=== PATIENT | male | born 1965 | race Asian ===

== ENCOUNTER 2017-11-06 01:10 | Emergency (ER) | payer SELFPAY ==
[2017-11-06 01:41] VITALS: BP 163/94; PULSE 78; TEMP 98.6; BMI 34.4
--- NOTE | 2017-11-06 02:26 | PDOC ---
History of Present Illness - General History Source: Patient <Kiet Samaniego - Last Filed: 11/06/17 02:29> - History of Present Illness Initial Comments: 11/06/17 02:33 Patient is a 52 M with PMHX of HTN, who presents with earache for 3 days. Patient complains of bilateral ear pain, left greater than right. Denies fever, sick contacts. PCP: Anand Araiza <Shira Chand - Last Filed: 11/06/17 02:34> - General Chief Complaint: Ear Problem Stated Complaint: EARACHE Time Seen by Provider: 11/06/17 02:26 Past History - Past Medical History COPD: No Diabetes: Yes (type II) HTN: Yes - Immunization History Immunization Up to Date: Yes - Suicide/Smoking/Psychosocial Hx Smoking History: Never smoked Have you smoked in the past 12 months: No Number of Cigarettes Smoked Daily: 0 Cigars Per Day: 0 Information on smoking cessation initiated: No Hx Alcohol Use: No Drug/Substance Use Hx: No Substance Use Type: None <Kiet Samaniego - Last Filed: 11/06/17 02:29> <Shira Chand - Last Filed: 11/06/17 02:34> - Past Medical History Allergies/Adverse Reactions: Allergies Allergy/AdvReac Type Severity Reaction Status Date / Time No Known Allergies Allergy Verified 11/06/17 01:28 Home Medications: Ambulatory Orders Amox-Tr/K Cl [Augmentin 875Mg Tablet] 1 tab PO BID #20 tablet 11/06/17 Glyburide-Metformin 2.5-500 mg 2.5 - 500 mg PO DAILY 11/06/17 Losartan-Hctz 100-25 mg Tab 25 mg PO DAILY 11/06/17 Review of Systems - Review of Systems Comments:: 11/06/17 02:33 CONSTITUTIONAL: Absent: fever, no chills, no fatigue EYES: Absent: visual changes ENT: Present: bilateral ear pain Absent: no sore throat CARDIOVASCULAR: Absent: chest pain, no palpitations RESPIRATORY: Absent: cough, no SOB GI: Absent: abdominal pain, no nausea, no vomiting, no constipation, no diarrhea GENITOURINARY: Absent: dysuria, no frequency, no hematuria MUSCULOSKELETAL: Absent: back pain, no arthralgia, no myalgia SKIN: Absent: rash <Shira Chand - Last Filed: 11/06/17 02:34> *Physical Exam - Vital Signs Last Vital Signs Temp Pulse Resp BP Pulse Ox 98.6 F 78 20 163/94 100 11/06/17 01:28 11/06/17 01:28 11/06/17 01:28 11/06/17 01:28 11/06/17 01:28 <Kiet Samaniego - Last Filed: 11/06/17 02:29> - Vital Signs Last Vital Signs Temp Pulse Resp BP Pulse Ox 98.6 F 78 20 163/94 100 11/06/17 01:28 11/06/17 01:28 11/06/17 01:28 11/06/17 01:28 11/06/17 01:28 - Physical Exam Comments: 11/06/17 02:33 GENERAL: Well-appearing, well-nourished. No apparent distress. HEENT: Normocephalic, atraumatic. PERRL, EOM intact. Edema & inflammation of left ear canal. CARDIOVASCULAR: Normal S1, S2. Regular rate and rhythm. PULMONARY: Clear to auscultation bilaterally. ABDOMEN: Soft, non-distended, non-tender. EXTREMITIES: Normal ROM in all four extremities. No gross deformities. SKIN: Warm, dry. No rash NEUROLOGICAL: No focal neurological deficits. <Shira Chand - Last Filed: 11/06/17 02:34> Medical Decision Making - Medical Decision Making 11/06/17 02:31 Dr. Samaniego: The scribe's documentation has been prepared under my direction and personally reviewed by me in its entirery. I confirm that the note above accurately reflects all work, treatment, procedures, and medical decision making performed by me. <Kiet Samaniego - Last Filed: 11/06/17 02:29> *DC/Admit/Observation/Transfer - Discharge Dispostion Admit: No <Kiet Samaniego - Last Filed: 11/06/17 02:29> - Attestations Scribe Attestion: 11/06/17 02:34 Documentation prepared by Shira Chand, acting as medical transcription radiology for Kiet Samaniego MD. <Shira Chand - Last Filed: 11/06/17 02:34> Diagnosis at time of Disposition: Otitis externa Qualifiers: Otitis externa type: swimmer's ear Chronicity: acute Laterality: left Qualified Code(s): H60.332 - Swimmer's ear, left ear - Discharge Dispostion Disposition: HOME - Prescriptions Prescriptions: Amox-Tr/K Cl [Augmentin 875Mg Tablet] 1 tab PO BID #20 tablet - Referrals Referrals: Anand Araiza [Primary Care Provider] - Bryant Segovia MD [Staff Physician] - - Patient Instructions Printed Discharge Instructions: DI for Otitis Externa Additional Instructions: Please follow up with your doctor or the doctor provided to you. Take medication as directed. - Post Discharge Activity
[2017-11-06] MEDS ORDERED: AMOX TR/POT CLAV 875MG/125MG TABLETS (FP) PO STA (02:27)
== END 2017-11-06 02:33 | disposition home or self-care (01) ==
LOC: JER 01:10
DX: H60.332 Swimmer's ear, left ear (principal); I10 Essential (primary) hypertension; E11.9 Type 2 diabetes mellitus without complications; Z79.84 Long term (current) use of oral hypoglycemic drugs
CPT/HCPCS: 99281-25

== ENCOUNTER 2017-11-21 21:25 | Emergency (ER) | payer OTHER ==
[2017-11-21 22:05] VITALS: BP 131/88; PULSE 90; TEMP 100; BMI 31.1
--- NOTE | 2017-11-21 22:16 | PDOC ---
History of Present Illness - General History Source: Patient Exam Limitations: No Limitations - History of Present Illness Initial Comments: 11/21/17 22:47 The patient is a 52 year old male, with a significant past medical history of hypertension and diabetes, who presents to the emergency department with cold like symptoms for approximately 2 weeks. The patient reports he developed left ear pain several weeks ago, for which he was evaluated by his PCP, who placed him on Amoxicillin. The patient reports he is compliant with his antibiotic course, however, he continues to have ear pain. As of 4 days ago, patient reports developing a runny nose, sore throat, and a dry cough. Patient reports associated diaphragmatic pain worse when coughing. He describes his sore throat as if "he had dust at the back of his throat." He reports subjective fever, chills, and night sweats. Patient reports he has been taking Tylenol for his symptoms with minimal relief. He endorses 1 episode of diarrhea(nonbloody), but denies any associated nausea, vomiting, hemoptysis, or constipation. Patient reports he has been able to tolerate solids and fluids p.o.. He denies any myalgia, weight loss, headache, dizziness, or lightheadedness. He denies any chest pain, shortness of breath, or palpitations. He denies any recent travel or sick contacts. Patient reports he did not have his flu shot this year. Allergies: NKDA Past Surgical History: None reported Social History: Non smoker. No ETOH or recreational drug use. <Jesus Means - Last Filed: 11/21/17 22:53> <Mary Brownlee - Last Filed: 11/22/17 00:47> - General Chief Complaint: Cold Symptoms Stated Complaint: FEVER Time Seen by Provider: 11/21/17 22:16 Past History <Jesus Means - Last Filed: 11/21/17 22:53> - Past Medical History COPD: No Diabetes: Yes (type II) HTN: Yes - Immunization History Immunization Up to Date: Yes - Suicide/Smoking/Psychosocial Hx Smoking History: Never smoked Have you smoked in the past 12 months: No Number of Cigarettes Smoked Daily: 0 Cigars Per Day: 0 Information on smoking cessation initiated: No Hx Alcohol Use: No Drug/Substance Use Hx: No Substance Use Type: None <Mary Brownlee - Last Filed: 11/22/17 00:47> - Past Medical History Allergies/Adverse Reactions: Allergies Allergy/AdvReac Type Severity Reaction Status Date / Time No Known Allergies Allergy Verified 11/21/17 22:05 Home Medications: Ambulatory Orders Glyburide-Metformin 2.5-500 mg 2.5 - 500 mg PO DAILY 11/06/17 Losartan-Hctz 100-25 mg Tab 25 mg PO DAILY 11/06/17 Benzonatate [Tessalon Pearls -] 200 mg PO TID #42 cap 11/22/17 Guaifenesin Dm [Robitussin Dm -] 10 ml PO Q8H #120 ml 11/22/17 Oseltamivir Phosphate [Tamiflu] 75 mg PO BID #10 capsule 11/22/17 Review of Systems - Review of Systems Able to Perform ROS?: Yes Comments:: 11/21/17 22:47 GENERAL/CONSTITUTIONAL: +Fever, chills, +night sweats. No weakness. HEAD, EYES, EARS, NOSE AND THROAT: +Ear pain, sore throat. No change in vision. No ear discharge. CARDIOVASCULAR: No chest pain, shortness of breath, or palpitations. RESPIRATORY: +Cough. No wheezing or hemoptysis. GASTROINTESTINAL: +Diaphragmatic pain. No nausea, vomiting, diarrhea or constipation. GENITOURINARY: No dysuria, frequency, or change in urination. MUSCULOSKELETAL: No joint or muscle swelling or pain. No neck or back pain. SKIN: No rash NEUROLOGIC: No headache, vertigo, loss of consciousness, or change in strength/ sensation. ENDOCRINE: No increased thirst. No abnormal weight change. HEMATOLOGIC/LYMPHATIC: No anemia, easy bleeding, or history of blood clots. ALLERGIC/IMMUNOLOGIC: No hives or skin allergy. <Jesus Means - Last Filed: 11/21/17 22:53> *Physical Exam - Vital Signs Last Vital Signs Temp Pulse Resp BP Pulse Ox 100.0 F H 90 18 131/88 100 11/21/17 22:03 11/21/17 22:03 11/21/17 22:03 11/21/17 22:03 11/21/17 22:03 - Physical Exam Comments: 11/21/17 22:53 GENERAL: Awake, alert, and fully oriented, in no acute distress HEAD: No signs of trauma EYES: PERRLA, EOMI, sclera anicteric, conjunctiva clear ENT: TMs are slightly erythematous on the left, but not bulging and no exudates. hearing grossly normal, nares patent, oropharynx clear without exudates. Moist mucosa NECK: Normal ROM, supple, no lymphadenopathy, JVD, or masses LUNGS: Breath sounds equal, clear to auscultation bilaterally. No wheezes, and no crackles HEART: Mildly tachycardic. Regular rhythm, normal S1 and S2, no murmurs, rubs or gallops ABDOMEN: Soft, nontender, normoactive bowel sounds. No guarding, no rebound. No masses EXTREMITIES: Normal range of motion, no edema. No clubbing or cyanosis. No cords, erythema, or tenderness NEUROLOGICAL: Cranial nerves II through XII grossly intact. Normal speech, normal gait SKIN: Warm, Dry, normal turgor, no rashes or lesions noted. <Jesus Means - Last Filed: 11/21/17 22:53> - Vital Signs Last Vital Signs Temp Pulse Resp BP Pulse Ox 100.0 F H 90 18 131/88 100 11/21/17 22:03 11/21/17 22:03 11/21/17 22:03 11/21/17 22:03 11/21/17 22:03 <Mary Brownlee - Last Filed: 11/22/17 00:47> ED Treatment Course - LABORATORY CBC & Chemistry Diagram: 11/21/17 23:14 11/21/17 23:14 <Mary Brownlee - Last Filed: 11/22/17 00:47> Medical Decision Making - Medical Decision Making 11/22/17 00:41 pt presents to the ED complaining of cough and subjective fever for three days. Patient feels like "something is squeezing me" when he coughs and has some shortness of breath after extended coughing spells. CXR checked to rule out PNA and is negative. Given his shortness of breath, EKG and cardiac enzymes checked to rule out ACS, although his symptoms are extremely atypical of cardiac disease. Labs checked to evaluate for dehydration and are negative. Will treat with tamiflu and tessalon perles for cough, discharge home with referral to his PMD. <Mary Brownlee - Last Filed: 11/22/17 00:47> *DC/Admit/Observation/Transfer - Attestations Scribe Attestion: 11/21/17 22:49 Documentation prepared by Jesus Means, acting as medical billing manager for Mary Brownlee MD. <Jesus Means - Last Filed: 11/21/17 22:53> - Discharge Dispostion Admit: No <Mary Brownlee - Last Filed: 11/22/17 00:47> Diagnosis at time of Disposition: Upper respiratory infection Qualifiers: URI type: unspecified URI Qualified Code(s): J06.9 - Acute upper respiratory infection, unspecified - Discharge Dispostion Disposition: HOME Condition at time of disposition: Good - Prescriptions Prescriptions: Benzonatate [Tessalon Pearls -] 200 mg PO TID #42 cap Guaifenesin Dm [Robitussin Dm -] 10 ml PO Q8H #120 ml Oseltamivir Phosphate [Tamiflu] 75 mg PO BID #10 capsule - Patient Instructions Printed Discharge Instructions: DI for Viral Upper Respiratory Infection -- Adult Additional Instructions: return to the ED for severe chest pain or shortness of breath, fever that persists after 7 days, severe nausea and vomiting, other new or worsening symptoms. Make sure that you folllow up with your primary care doctor within two days.
[2017-11-21] MEDS ORDERED: SODIUM CHLORIDE 0.9% 1000 ML INFUS.BAG IV ONE (22:52)
[2017-11-21 23:24] LABS: BASO % 0.6 % (0-2.0); EOS % 1.6 % (0-4.5); HEMATOCRIT 38.9 % (35.4-49); HEMOGLOBIN 13.2 GM/dL (11.7-16.9); LYMPH % 37.3 % (8-40); MEAN CELL VOLUME 85.1 fl (80-96); MONO % 15.6 % (3.8-10.2); NEUT % 44.9 % (42.8-82.8); PLATELET COUNT 165 K/MM3 (134-434); RBC 4.57 M/mm3 (4.00-5.60); WHITE BLOOD COUNT 3.4 K/mm3 (4.0-10.0)
[2017-11-21 23:44] LABS: ALBUMIN 3.8 g/dl (3.4-5.0); ANION GAP 11 (8-16); BILIRUBIN,TOTAL 0.4 mg/dL (0.2-1.0); BLOOD UREA NITROGEN 11 mg/dL (7-18); CALCIUM 8.4 mg/dL (8.5-10.1); CHLORIDE 100 mmol/L (98-107); CO2 28 mmol/L (21-32); CREATININE 1.1 mg/dL (0.7-1.3); GLUCOSE,RANDOM 206 mg/dL (74-106); POTASSIUM 3.2 mmol/L (3.5-5.1); SGOT/AST 30 U/L (15-37); SGPT/ALT 41 U/L (12-78); SODIUM 139 mmol/L (136-145); TOT PROT 7.3 g/dl (6.4-8.2)
[2017-11-21 23:47] LABS: ALK PHOS 63 U/L (45-117)
[2017-11-22] MEDS ORDERED: OSELTAMIVIR PHOSPHATE 75 MG CAPSULE PO ONE (00:34)
[2017-11-22] MEDS ORDERED: OSELTAMIVIR PHOSPHATE 75 MG CAPSULE ONE (00:56)
--- NOTE | 2017-11-22 08:52 | EKG ---
Test Reason : Blood Pressure : / mmHG Vent. Rate : 090 BPM Atrial Rate : 090 BPM P-R Int : 130 ms QRS Dur : 090 ms QT Int : 364 ms P-R-T Axes : 028 021 034 degrees QTc Int : 445 ms NORMAL SINUS RHYTHM NORMAL ECG WHEN COMPARED WITH ECG OF 12-APR-2016 10:17, NO SIGNIFICANT CHANGE WAS FOUND Confirmed by AYSE MEYER MD ([id number]) on 11/22/2017 8:52:10 AM Referred By: Confirmed By:AYSE MEYER MD
== END 2017-11-22 01:07 | disposition home or self-care (01) ==
LOC: JER 21:25
DX: J06.9 Acute upper respiratory infection, unspecified (principal); B97.89 Other viral agents as the cause of diseases classified elsewhere; I10 Essential (primary) hypertension; E11.9 Type 2 diabetes mellitus without complications; Z79.84 Long term (current) use of oral hypoglycemic drugs
CPT/HCPCS: 36415; 71046-TC-FY; 80053; 82550; 82553; 84484; 85025; 93005; 93010; 99282-25